=== PATIENT | female | born 1950 | race Caucasian/White ===

== ENCOUNTER → 2017-11-17 | Outpatient (CLI) | payer OTHER ==
[~2017-11-17] MED LIST: REGADENOSON 0.4 MG/5 ML SYRINGE ONE
== END | disposition home or self-care (01) ==
LOC: CFH 08:09
PROVIDERS: ATTEND Internal Medicine Cardiovascular Disease
DX: R07.89 Other chest pain (principal)
CPT/HCPCS: 78452; 93017; A9502; J2785

== ENCOUNTER → 2017-12-12 | Outpatient (CLI) | payer OTHER ==
[~2017-12-12] MED LIST changes: +ASPI-496 PO; +DIPH25CA61 PO; +METO25TA35 PO; -REGADENOSON 0.4 MG/5 ML SYRINGE ONE; +VALS160T3 PO; +ZOLP5TAB6 PO
[2017-12-12 10:03] LABS: MICROSCOPIC NOT IND
[2017-12-12 10:12] LABS: ALANINE AMINOTRANSFERASE 18 U/L (12-78); ALBUMIN 3.9 g/dL (3.4-5.0); ANION GAP 5 mmol/L (5-15); CALCIUM 8.5 mg/dL (8.5-10.1); CHLORIDE 108 mmol/L (98-107); CREATININE 0.82 mg/dL (0.55-1.02)
[2017-12-12 10:14] LABS: ALKALINE PHOSPHATASE 85 U/L (45-117); BILIRUBIN,TOTAL 0.6 mg/dL (0.2-1.0); TOTAL PROTEIN 7.9 g/dL (6.4-8.2)
== END ==
LOC: STAR 08:24
PROVIDERS: ATTEND Urology
DX: Z01.818 Encounter for other preprocedural examination (principal); R94.31 Abnormal electrocardiogram [ECG] [EKG]
CPT/HCPCS: 36415; 80053; 81003; 87086; 93005

== ENCOUNTER 2017-12-20 10:12 | Day surgery (SDC) | payer OTHER ==
[~2017-12-20] VITALS: Ht 162.6 cm; Wt 53.3 kg
[2017-12-20] MEDS ORDERED: LACTATED RINGERS 1,000 ML IV SCH (11:06)
[2017-12-20 11:11] VITALS: BP 146/83
[2017-12-20] MEDS ORDERED: MIDAZOLAM 1 MG/ML, 2ML ONE (12:29)
[2017-12-20] MEDS ORDERED: FENTANYL PF 100 MCG/2ML ONE (12:29)
[2017-12-20] MEDS ORDERED: METOCLOPRAMIDE 5 MG/ML, 2ML ONE (12:38)
[2017-12-20] MEDS ORDERED: ONDANSETRON 2MG/ML, 2ML ONE (12:38)
[2017-12-20] MEDS ORDERED: DEXAMETHASONE 4 MG/ML, 1ML ONE (12:38)
[2017-12-20] MEDS ORDERED: LIDOCAINE-MPF 2% ,5ML ONE (12:39)
[2017-12-20] MEDS ORDERED: PROPOFOL 10 MG/ML, 20ML ONE (12:39)
[2017-12-20] MEDS ORDERED: WATER-INJECTION,STERILE 10 ML IV ONE (12:43)
[2017-12-20] MEDS ORDERED: EPHEDRINE 50 MG/ML, 1ML ONE (12:43)
[2017-12-20] MEDS ORDERED: CEFAZOLIN 1,000 MG ONE ×2 (12:46)
[2017-12-20] MEDS ORDERED: HYDROmorphone 1 MG/ML, 1ML IV PRN (13:30)
[2017-12-20] MEDS ORDERED: MEPERIDINE/PF 25MG/0.5ML IVPush PRN (13:30)
[2017-12-20] MEDS ORDERED: OXYcodone 5 MG/5 ML ORAL.SOL UDC PO PRN (13:30)
[2017-12-20] MEDS ORDERED: MIDAZOLAM 1 MG/ML, 2ML IV PRN (13:30)
[2017-12-20] MEDS ORDERED: FENTANYL PF 100 MCG/2ML IV PRN (13:30)
[2017-12-20] MEDS ORDERED: ONDANSETRON 2MG/ML, 2ML IVPush PRN (13:30)
[2017-12-20] MEDS ORDERED: LABETALOL 5MG/ML, 20ML IV PRN (13:30)
== END 2017-12-20 14:50 ==
LOC: OUT 10:12
PROVIDERS: ATTEND Urology
DX: N30.21 Other chronic cystitis with hematuria (principal); I10 Essential (primary) hypertension; Z79.82 Long term (current) use of aspirin; Z79.899 Other long term (current) drug therapy
CPT/HCPCS: 52204; 88305; J0690; J1100; J2250; J2405; J2704; J2765; J3010; J3490

== ENCOUNTER → 2020-05-20 | Outpatient (CLI) | payer MEDICARE, OTHER | END | disposition home or self-care (01) | LOC: CFH 11:02 | PROVIDERS: ATTEND Nurse Practitioner Family | DX: I37.1 Nonrheumatic pulmonary valve insufficiency (principal); I10 Essential (primary) hypertension; R00.2 Palpitations | CPT/HCPCS: 93306 ==